=== PATIENT | male | born 1975 | race Caucasian/White ===

== ENCOUNTER 2020-03-16 07:37 | Emergency (ER) | payer OTHER ==
[~2020-03-16] VITALS: Ht 182.9 cm; Wt 83.9 kg
[~2020-03-16 07:37] MED LIST: CIPRO250 M1 PO; FLOMAX0.4 MG PO; HYDROCODON-ACE1 EACH; HYOSCYAMIN125 MCG/5 PO; IBUPROFEN 800800 M1 PO; NORCO 5-325 TA1 EACH PO; ONDANSETRON HCL4 M2 PO; PYRIDIUM200 MG PO; ZOFRAN ODT4 MG PO
[2020-03-16 08:04] LABS: URINE BILIRUBIN NEGATIVE (Negative); URINE BLOOD 3+ (Negative); URINE CLARITY CLEAR; URINE COLOR YELLOW; URINE GLUCOSE-RANDOM NEGATIVE (Negative); URINE KETONES TRACE (Negative); URINE LEUKOCYTES-REFLEX NEGATIVE (Negative); URINE NITRITE-REFLEX NEGATIVE (Negative); URINE PROTEIN NEGATIVE (Negative); URINE SPECIFIC GRAVITY >= 1.030 (1.005-1.030); URINE UROBILINOGEN 0.2 E.U./dl (0.2-1.0)
[2020-03-16 08:08] LABS: ABSOLUTE EOSINOPHILS 0.1 thou/uL (0.0-0.7); ABSOLUTE LYMPHOCYTES 1.2 thou/uL (0.8-5.3); ABSOLUTE MONOCYTES 0.7 thou/uL (0.0-1.2); ABSOLUTE NEUTROPHILS 8.4 thou/uL (1.6-8.1); BASOPHILS 0.2 %; HEMATOCRIT 45.9 % (42.0-52.0); HEMOGLOBIN 15.2 gm/dL (14.0-18.0); LYMPHOCYTES 11.2 %; MCH 24.6 pg (26.0-34.0); MCHC 33.2 g/dL (28.0-37.0); MCV 74.1 fL (80.0-100.0); MONOCYTES 6.5 %; MPV 7.2 fl. (7.2-11.1); NUCLEATED RBCS 0 /100WBC; PLATELET COUNT* 247 thou/uL (150-400); POLYS 81.1 %; RBC 6.19 mil/uL (4.50-6.00); WBC 10.3 thou/uL (4.0-11.0)
[2020-03-16 08:14] LABS: CASTS None Seen /LPF (None Seen); CRYSTALS None Seen /LPF (None Seen); SQUAMOUS 0-3 Few /LPF (0-3); URINE RBC 0-2 Rare /HPF (0-2); URINE WBC-REFLEX 0-5 Rare /HPF (0-5)
[2020-03-16 08:55] LABS: CALCIUM 9.6 mg/dL (8.5-10.1); CREATININE 1.5 mg/dL (0.6-1.3)
[2020-03-16 09:00] LABS: ALBUMIN 4.5 g/dL (3.4-5.0); TOTAL BILIRUBIN 0.9 mg/dL (<0.1-1.0); TOTAL PROTEIN 8.2 g/dL (6.4-8.2)
[2020-03-16] MEDS ORDERED: ZOFRAN ODT4 MG PO (10:39)
[2020-03-16] MEDS ORDERED: FLOMAX0.4 MG PO (10:39)
[2020-03-16] MEDS ORDERED: PERCOCET 5-3251 EACH PO (10:39)
[2020-03-16 10:53] VITALS: BP 135/85
== END 2020-03-16 10:53 | disposition home or self-care (01) ==
LOC: M.ERS 07:37
PROVIDERS: Personal Emergency Response Attendant
DX: N23 Unspecified renal colic (principal); Z87.442 Personal history of urinary calculi